=== PATIENT | female | born 1995 | race Caucasian/White ===

== ENCOUNTER 2016-06-18 22:52 | Observation (INO) ==
[2016-06-18 23:31] VITALS: BP 125/75
--- NOTE | 2016-06-19 07:19 | Discharge Summary ---
Date of Encounter: 06/19/16 Time of Encounter: 07:17 - Discharge Diagnosis (1) 39 weeks gestation of Priority: Primary Status: Acute Comments: admit for observation for labor evaluation (2) NST (non-stress test) reactive Priority: Secondary Status: Acute Comments: reactive NST 135 bpm moderate variability - Discharge Medications Home Medications: Formula Tablet 1 tab PO DAILY 06/19/16 [History] Allergies/Adverse Reactions: Allergies No Known Allergies Allergy (Verified 06/19/16 01:53) Date of admission: 06/18/16 22:52 Discharging clinician: Candy Israel Anticipated date of discharge: 06/19/16 - Patient Status Disposition: Home, Self-Care Condition: Good Functional capacity at discharge: independent ambulation - Discharge Instructions Additional Instructions: LABOR AND DELIVERY DISCHARGE INSTRUCTIONS Signs and Symptoms to be Reported to your Doctor Immediately: * Sudden gush, continuous or intermittent lead of fluid from vagina (note the time of gush and color of fluid) * Onset of bright red vaginal bleeding with or without pain (if you had a vaginal exam during this visit you may notice some dark red spotting. This is normal.) * Contractions that are 5 minutes apart (from the beginning of one contraction to the beginning of the next) and last 45-60 seonds; contractions that you can no longer walk, talk or laugh through. * A change in the baby's activity. This could be an increase or decrease in activity. * Severe headache which does not go away with tylenol. * Sudden swelling in the face, hands, arms and/or legs. * Upper abdominal pain - sometimes associated with heartburn or nausea and is not relieved by Maalox, Mylanta or Tums. * Kick Counts __ One hour after a meal, lay down on one side in a quiet place. Count the number of time the baby moves during an hour. If less than 6 movements, notify your physician Diet: *Force fluids, 8 to 10 tall glasses of fluid per day - may include popsicles and jello *Limit caffeine - this includes chocolate, coffee, tea, any soft drink containing such as all sanjana, Albert Yellow and Mountain Dew - Diet and Activity Activity: increase activity as tolerated Diet: regular diet Hospital Course [facility]ER Time Attestation: Total time spent providing and/or coordinating discharge services: Exam - Constitutional Vitals: Temp Pulse Resp BP 98.8 F 94 16 125/75 06/18/16 23:20 06/18/16 23:20 06/18/16 23:20 06/18/16 23:20 - Other Additional findings: Patient was assessed by RN. FHT 135 bpm moderate variability +15x15 accels no decels noted. irregular contractions. Cat. 1 tracing. RNST - VTE Reasons for not Prescribing Prophylaxis: Treatment not Indicated - Low risk for VTE
== END 2016-06-19 02:01 | disposition home or self-care (01) ==
LOC: 1NENULAB
PROVIDERS: ADMIT Obstetrics & Gynecology; ATTEND Obstetrics & Gynecology

== ENCOUNTER 2016-06-24 15:04 | Inpatient (IN) ==
[2016-06-24] MEDS ORDERED: Famotidine 20 MG/2 ML VIAL IVP PRN (15:08)
[2016-06-24] MEDS ORDERED: Ondansetron 4 MG/2 ML VIAL IVP PRN (15:08)
[2016-06-24] MEDS ORDERED: Naloxone 0.4 MG/ML INJ IVP PRN (15:08)
[2016-06-24] MEDS ORDERED: miSOPROStol 100 MCG TABLET PO STA (15:10)
[2016-06-24 15:49] LABS: Basophils % 0.3 %; Eosinophils # 0.1 K/mcL (0.0-0.6); Eosinophils % 0.7 %; Hematocrit 34.7 % (35.3-44.9); Hemoglobin 11.5 g/dL (11.5-15.4); Immature Granulocytes % 1.3 % (0-4); Immature Platelets 9.9 % (1.1-6.1); Lymphocytes % 15.2 %; Mean Corpuscular HGB Conc 33.1 g/dL (31.6-35.5); Mean Corpuscular Hemoglobin 29.3 pg (28.0-33.3); Mean Corpuscular Volume 88.3 fL (83.0-100.0); Mean Platelet Volume 11.6 fL (9.4-12.4); Monocytes # 1.1 K/mcL (0.0-1.3); Monocytes % 8.2 %; Neutrophils # 9.7 K/mcL (1.6-8.9); Platelet Count 237 K/mcL (140-400); Red Blood Count 3.93 M/mcL (3.82-4.97); Red Cell Distribution Width 15.5 % (11.5-14.5); Segmented Neutrophils % 74.3 %
--- NOTE | 2016-06-24 16:25 | OB/GYN History & Physical ---
Date of Encounter: 06/24/16 Time of Encounter: 16:20 Assessment and Plan (1) 40 weeks gestation of Current visit: Yes Status: Acute admit for IOL (2) Oligohydramnios in matthew in third trimester Current visit: Yes Status: Acute admit for IOL History of Present Illness Chief complaint: Oligohydramnios HPI: Ms. Wallace is a 21 year old female at 40w0d presents to labor and delivery for IOL for Oligohydramnios with a deceleration in heart rate during ultrasound. Patient had an LAURA of 4.7. Prolonged decel noted when patient was placed on the monitor in labor and delivery. Patient reports +FM denies contractions, LOF or VB. Blood type: O+, Rubella: nonimmune, Hep B: Nonreactive, GBS: Negative. Will admit for IOL. Past Med Surg Social Fam HX - Past Medical History Source: patient Medical history: no medical history Psychiatric history: no psych history - Past Surgical History Surgical History: no surgical history - Social History Smoking Status: Never smoker Smokeless Tobacco Status: No Alcohol use: none Current living situation: Home - Independent Activity Level: Independent ambulation Recent Out of Country Travel Within the Last 8 Weeks: No Exposure or Possible Exposure to Illness During Travel: No - Family History Mother Living Status: Still Living Hx Family Cardiac Disorders: No Hx Family Respiratory Disorders: No Hx Family Cancer: No Hx Family GI Disorders: No Hx Family Genitourinary Disorders: No Hx Family Endocrine Disorder: No Hx Family Musculoskeletal Disorders: No Hx Family Neuromuscular Disorders: No Hx Family Neurologic Disorders: No Hx Family HEENT Disorders: No Hx Family Autoimmune Disorders: No Hx Family Reproductive Disorders: No Hx Family Psychosocial Disorders: No Hx Family Medical Disorders: No Obstetrical History - Pregnancies : 1 Para: 0 Term: 0 : 0 Ab's: 0 Livin Medications and Allergies Formula Tablet 1 tab PO DAILY 06/19/16 [History] Allergies No Known Allergies Allergy (Verified 06/19/16 01:53) Review of System OB - Constitutional Constitutional ROS IM: no fever(s), no headache(s) - Cardiovascular Cardiovascular: no dyspnea, no palpitations, no syncope - Respiratory Respiratory: no dyspnea - Gastrointestinal Gastrointestinal: no abdominal pain, no constipation, no diarrhea, no heartburn , no nausea, no vomiting - Genitourinary Genitourinary: no abnormal vaginal bleeding, no dysuria, no urinary frequency, no urinary incontinence, no vaginal discharge, no vaginal odor Exam - Vital Signs Vital signs: Initial Vital Signs Temp Pulse Resp BP Pulse Ox 98.0 F 94 14 120/79 99 06/24/16 15:39 06/24/16 15:39 06/24/16 15:39 06/24/16 15:39 06/24/16 15:39 - Constitutional Constitutional: well developed, well nourished, no acute distress, average body habitus - HEENT HEENT: Normocephaly, Mucus Membranes Moist - Neck Neck exam: full ROM, supple - Lungs Respiratory exam: CTAB - Cardiovascular Cardiovascular exam: RRR, +S1, +S2 - Breasts Breast: bilateral: normal - Abdomen Abdomen: Present: bowel sounds normal, gravid, non tender - Extremities Extremities exam: full ROM, normal capillary refill, normal inspection Deep Tendon Reflex Grade: 2+ Normal - Cervix Dilation: 1 Effacement: 50 Station: -2 - Uterus Uterus exam: Present: normal size, normal contour - Anus/Rectum Anus/Rectum: Present: normal perianal skin (FHR 135 bpm moderate variability + 15x15 accels no decels noted at this time. No contractions noted. Tran catheter placed for IOL with 30cc sterile water in tran balloon.) Results Result Diagrams: 06/24/16 15:36 Abnormal lab results WBC 13.1 K/mcL (4.3-11.1) H 06/24/16 15:36 Hct 34.7 % (35.3-44.9) L 06/24/16 15:36 RDW 15.5 % (11.5-14.5) H 06/24/16 15:36 Neutrophils # 9.7 K/mcL (1.6-8.9) H 06/24/16 15:36 Immature Plt Fraction 9.9 % (1.1-6.1) H 06/24/16 15:36 All other labs normal. - VTE Reasons for not Prescribing Prophylaxis: Treatment not Indicated - Low risk for VTE
[2016-06-24] MEDS ORDERED: Oxytocin 20 units/ LR 1000 mL 20 UNIT/1,000 ML BAG IVC SCH (17:15)
--- NOTE | 2016-06-24 17:29 | Anesthesia Evaluation PreOp ---
Date of Encounter: 06/24/16 Time of Encounter: 17:26 - Past History Planned Operation: zee/sab Cardiac History: Denies any Significant Hx Pulmonary History: Asthma (childhood) REEL SLITTER History: Denies Any Significant HX Other Medical History: GERD Anesthesia History: No Prior Anesthetic Complications, Past Anesthesia (egd), Problems (no complications) : Yes Test: Positive Alcohol Use: none Drug use: none Medications and Allergies Formula Tablet 1 tab PO DAILY 06/19/16 [History] Allergies No Known Allergies Allergy (Verified 06/19/16 01:53) - Meds/Allergy Pre-op Review Medications Reviewed: Yes Allergies Reviewed: Yes Beta Blockers on Current Med List: No Anesthesia Results - Labs 06/24/16 15:36 Anesthesia Exam Vital Signs/O2 Sat, Most Current Temp Pulse Resp BP Pulse Ox 98.0 F 94 14 120/79 99 06/24/16 15:39 06/24/16 15:39 06/24/16 15:39 06/24/16 15:39 06/24/16 15:39 Height: 5'2" Weight: 174 NPO (# of Hours): 2 Pain Scale: 1 Pain Scale Used: Numeric (1 - 10) - HEENT Pupil (Motor): Pupils equal Teeth: Normal Oral Opening: Greater than 3 - REEL SLITTER LOC: Oriented REEL SLITTER Motor: Normal RUE, Normal LUE, Normal RLE, Normal LLE, Normal Face REEL SLITTER Sensory: Normal: RUE, LUE, RLE, LLE, Face - Cardiac Rhythm: Regular Murmur: None - Pulmonary Breath Sounds: bilateral Clear Respiratory Effort: Symmetrical Anesthesia Assess/Plan ASA Score: 2 Modified Esvin Scale for Level of Consciousness: Cooperative, oriented, and tranquil Anesthetic Plan: Regional Monitoring Plan: Standard Monitors (risks discussed, questions answered, consented for ZEE/SAB)
[2016-06-24] MEDS: Ringers Solution, Lactated 1,000 ML IVC SCH ×2 (17:31→23:26)
--- NOTE | 2016-06-24 19:47 | OB Labor Progress Note ---
Date of Encounter: 06/24/16 Time of Encounter: 19:45 Labor Progress Note - Subjective Subjective: Patient resting in bed. Patient denies any questions or concerns. - Cervix Cervix: 4/90/-2 - Heart Tones Heart Tones: 135 bpm moderate variability +15x15 accels no decels noted. CAt. 1 tracing - Laie Laie: 2-3 min apart - Interventions Interventions: SVE - Plan Plan: Continue labor management. Patient may have Nubain or epidural for pain if desires.
--- NOTE | 2016-06-24 21:35 | OB Labor Progress Note ---
Date of Encounter: 06/24/16 Time of Encounter: 21:33 Labor Progress Note - Subjective Subjective: Patient resting in bed. Patient reports contractions are starting to feel stronger. Discussed POC with patient. Patient denies any questions or concerns. - Cervix Cervix: 4/90/-1 - Heart Tones Heart Tones: 135 bpm moderate variability +15x15 accels variables noted. - Spring Green Spring Green: 2-3 min apart - Interventions Interventions: SVE, AROM small amount of clear fluid. Patient tolerated well. - Plan Plan: Continue labor management. Patient may have Nubain or epidural for pain if desires.
[2016-06-24] MEDS ORDERED: *HR* Nalbuphine 20 MG/ML AMPUL IVP PRN (23:06)
[2016-06-24] MEDS ORDERED: *HR* Ropivacaine/PF 0.2% 10 ML AMPUL EP ONE (23:36)
[2016-06-24] MEDS ORDERED: *HR* FentaNYL (PF) 100 MCG/2 ML VIAL EP ONE (23:36)
[2016-06-24] MEDS ORDERED: *HR* FentaNYL (PF) 100 MCG/2 ML VIAL ONE (23:41)
[2016-06-24] MEDS ORDERED: Epidural Premix (fent/bupiv) 110 ML EP ONE (23:41)
[2016-06-24] MEDS ORDERED: *HR* Ropivacaine/PF 0.2% 10 ML AMPUL ONE (23:41)
[2016-06-24] MEDS ORDERED: Epidural Premix (fent/bupiv) 110 ML EP SCH (23:45)
--- NOTE | 2016-06-25 00:14 | Anesthesia Procedures ---
Date of Encounter: 06/25/16 Time of Encounter: 00:12 Procedures: Anesthesia - Epidural/Spinal Patient examined: Yes OB Eval: Gestational age: 40 OB Eval: : 1 OB Eval: Hx Para: 0 OB Eval: Dilated at (cm): 4 OB Eval: Contractions: Non-stressed pattern Consent Obtained: Yes Supplemental Oxygen: None/Room Air Site Prep: Aseptic Technique, 0.5% Chlorhexidine/Alcohol Patient position: upright Local Anesthetic: Lidocaine 1% Amount of Local Anesthetic used: 3 Touhy Needle Gauge: 18 Touhy Needle Depth (cm): 6 Catheter Depth at Skin (cm): 15 Test Dose (1.5% Lido + Epi): Volume given (mls): 3 Test Dose Result: Negative Loading Dose: Fentanyl (mcg): 100 Loading Dose: Other: ropivicaine 0.2 10cc Infusion Med: 0.125% Bupivacaine w/ 2 mcg/ml Fentanyl Infusion Rate (mls/hr): 14 (pcea 5ccq30") Catheter Secured in Place: Tegaderm Interspace Used: L2-L3 Loss of Resistance (DENIZ): Yes Blood: No CSF: No Paresthesia: No Procedure: tolerated well, effective block, no complications Vitals + FHT's: 98/58 82 fht 118
[2016-06-25] MEDS: Ringers Solution, Lactated 1,000 ML IVC SCH ×3 (00:42→08:24)
--- NOTE | 2016-06-25 06:34 | OB Labor Progress Note ---
Date of Encounter: 06/25/16 Time of Encounter: 06:32 Labor Progress Note - Subjective Subjective: Patient resting comfortably in bed. Patient has epidural. Pitocin at 2 milliunits. - Cervix Cervix: 6/100/+1 - Heart Tones Heart Tones: 135 bpm moderate variability +15x15 accels jeovanny decels and variables noted. - Whiteside Whiteside: 2-8 Min apart - Interventions Interventions: SVE, IUPC placed without difficulty. - Plan Plan: Continue labor management if variables continue will start amnioinfusion
[2016-06-25] MEDS ORDERED: 0.9 % Sodium Chloride 1,000 ML ONE (06:48)
[2016-06-25] MEDS ORDERED: Epidural Premix (fent/bupiv) 110 ML EP ONE (07:22)
--- NOTE | 2016-06-25 09:37 | OB Labor Progress Note ---
Date of Encounter: 06/25/16 Time of Encounter: 09:35 Labor Progress Note - Subjective Subjective: Patient comfortable in bed with epidural in place. - Cervix Cervix: 8/100/+1 - Heart Tones Heart Tones: 150 bpm moderate variability +15x15 accels variables noted. - [place] Min[place]: 2.5-3 min apart - Interventions Interventions: SVE, Patient repositioned. Amnioinfusion irrigating at 80cc per hour per dial-a- flow. - Plan Plan: Continue labor management
[2016-06-25] MEDS ORDERED: Lidocaine 1% 20 ML MDV ONE (11:47)
--- NOTE | 2016-06-25 12:46 | OB/GYN Procedure Note ---
Delivery - Delivery Date: 06/25/16 Provider: Emilie Tafoya ([facility]) Intrapartum events: none Delivery induction: oxytocin, tran Delivery augmentation: rupture of membranes Delivery monitor: external FHT, external uterine, internal uterine Anesthesia: epidural Estimated Blood Loss: 300 - (s) Infant A Infant Delivery Date: 06/25/16 Infant Delivery Time: 12:21 Presentation: vertex Position: OA Route of delivery: Gender: Male Viability: Viable Weight Gram: 3.05 kg at 1 minute: 8 at 5 mins: 9 Shoulder Dystocia: not encountered Specimens collected: cord blood Placenta: spontaneous - Repair Episiotomy: none Laceration Description: None - Complications Delivery complications: none - Disposition Mom disposition: stable in LDR Metter disposition: stable in LDR - Comments Comments: Pt complete began directed pushing to of liveborn female. Vertex delivered OA and shoulders easily followed. placed on maternal abdomen stimulated to crying APGARS 8/9. Placenta delivered spontaneously (fabian) fundus firm with EBL of 300mls. Perineum with first degree laceration homeostatic and left unimpaired. Pitocin started per policy, Dr. Tafoya present for entire procedure.
[2016-06-25] MEDS ORDERED: Ibuprofen 600 MG TABLET PO PRN (14:42)
[2016-06-25] MEDS ORDERED: Oxytocin 20 units/ LR 1000 mL 20 UNIT/1,000 ML BAG IVC ONE (14:42)
[2016-06-25] MEDS ORDERED: Lanolin 7 G OINT...G. TP PRN (14:42)
[2016-06-25] MEDS ORDERED: Measles/Mumps/Rubella Vacc 0.5 ML VIAL SQ PRN (14:42)
[2016-06-25] MEDS ORDERED: Benzocaine/Menthol 56 GM AEROSOL SPRAY TP PRN (14:42)
[2016-06-25] MEDS ORDERED: Oxytocin 20 units/ LR 1000 mL 20 UNIT/1,000 ML BAG IV SCH (14:42)
[2016-06-25] MEDS ORDERED: Acetaminophen 325 MG TABLET PO PRN (14:42)
[2016-06-26 05:38] LABS: Basophils # 0.1 K/mcL (0.0-0.2); Basophils % 0.4 %; Eosinophils # 0.2 K/mcL (0.0-0.6); Hematocrit 28.2 % (35.3-44.9); Immature Granulocytes % 0.8 % (0-4); Lymphocytes # 2.4 K/mcL (0.6-4.6); Lymphocytes % 12.4 %; Mean Corpuscular HGB Conc 33.3 g/dL (31.6-35.5); Mean Corpuscular Hemoglobin 29.7 pg (28.0-33.3); Mean Platelet Volume 11.8 fL (9.4-12.4); Monocytes # 1.7 K/mcL (0.0-1.3); Monocytes % 8.5 %; Neutrophils # 15.1 K/mcL (1.6-8.9); Platelet Count 171 K/mcL (140-400); Red Blood Count 3.17 M/mcL (3.82-4.97); Red Cell Distribution Width 15.6 % (11.5-14.5); Segmented Neutrophils % 76.9 %
[2016-06-26 05:40] LABS: Hemoglobin 9.4 g/dL (11.5-15.4)
[2016-06-26 08:17] VITALS: BP 116/77
--- NOTE | 2016-06-26 08:30 | Discharge Summary ---
Date of Encounter: 06/26/16 Time of Encounter: 08:28 - Discharge Diagnosis (1) 40 weeks gestation of Priority: Secondary Status: Acute (2) Oligohydramnios in matthew in third trimester Priority: Secondary Status: Acute (3) Vaginal delivery Priority: Primary Status: Acute Comments: Continue routine care discharge home today follow up with LANIE Gupta in 4-6 weeks - Discharge Medications Prescriptions: Ibuprofen [Motrin] 600 mg PO Q6HR PRN #60 tablet PRN Reason: Cramping Home Medications: Formula Tablet 1 tab PO DAILY 06/19/16 [History] Ibuprofen [Motrin] 600 mg PO Q6HR PRN #60 tablet 06/26/16 [Rx] Vit/FA 1 each PO DAILY tablet 06/26/16 [Rx] Allergies/Adverse Reactions: Allergies No Known Allergies Allergy (Verified 06/19/16 01:53) Data Procedures and tests throughout hospitalization: Laboratory Tests 06/24/16 06/26/16 15:36 04:44 WBC 13.1 H 19.6 H RBC 3.93 3.17 L Hgb 11.5 9.4 L D Hct 34.7 L 28.2 L MCV 88.3 89.0 MCH 29.3 29.7 MCHC 33.1 33.3 RDW 15.5 H 15.6 H Plt Count 237 171 MPV 11.6 11.8 Immature Gran % 1.3 0.8 Seg Neutrophils % 74.3 76.9 Lymphocytes % 15.2 12.4 Monocytes % 8.2 8.5 Eosinophils % 0.7 1.0 Basophils % 0.3 0.4 Neutrophils # 9.7 H 15.1 H Lymphocytes # 2.0 2.4 Monocytes # 1.1 1.7 H Eosinophils # 0.1 0.2 Basophils # 0.0 0.1 Immature Plt Fraction 9.9 H Labs on day of discharge: Labs from last 24 hours 06/26/16 04:44 WBC 19.6 H RBC 3.17 L Hgb 9.4 L D Hct 28.2 L MCV 89.0 MCH 29.7 MCHC 33.3 RDW 15.6 H Plt Count 171 MPV 11.8 Immature Gran % 0.8 Seg Neutrophils % 76.9 Lymphocytes % 12.4 Monocytes % 8.5 Eosinophils % 1.0 Basophils % 0.4 Neutrophils # 15.1 H Lymphocytes # 2.4 Monocytes # 1.7 H Eosinophils # 0.2 Basophils # 0.1 Date of admission: 06/24/16 15:04 Primary care physician: PCP MARY JO Consults: 06/25/16 14:42 Consult to Vending Route Driver [CONS] Routine Comment: Vaginal delivery, consult needed Discharging clinician: Candy Israel Anticipated date of discharge: 06/26/16 - Patient Status Disposition: Home, Self-Care Condition: Good Functional capacity at discharge: independent ambulation - Discharge Instructions Follow Up With: MARY JO,PCP [Primary Care Provider] - Candy Israel CNM [Non-Partnered Physician] - - Diet and Activity Activity: increase activity as tolerated Diet: regular diet Hospital Course Reason for admission: induction of labor (for Oligohydramnios) Delivery: Episiotomy: none Laceration: none Other procedures: none complications: none Discharge diagnosis: IUP at term delivered [place] baby: male (bottle feeding) Time Attestation: Total time spent providing and/or coordinating discharge services: Time Spent: Less than 30 minutes Exam - Constitutional Vitals: Temp Pulse Resp BP Pulse Ox 97.8 F 78 16 116/77 98 06/26/16 08:16 06/26/16 08:16 06/26/16 08:16 06/26/16 08:16 06/26/16 08:16 General appearance IM: A&O X 3, pleasant, answers questions appropriately - Respiratory Respiratory exam: Present: CTAB - Cardiovascular Cardiovascular exam IM: Present: RRR, +S1, +S2 - GI/Abdominal GI/Abdominal exam IM: normal bowel sounds - Uterine Tone: Firm Uterus Position: 1 Finger Below Umbilicus, Midline - Extremities Exam Extremities exam IM: Present: full ROM, normal capillary refill, normal inspection - Neurological Exam Neurological exam: alert, oriented X3, reflexes normal
[2016-06-26] MEDS ORDERED: Prenatal Vit/FA 1 EACH TABLET PO SCH (09:00)
== END 2016-06-26 13:30 | disposition home or self-care (01) | DRG 560 ==
LOC: 1NENULAB 15:04 → 1NENUOBS 06-25 14:27
PROVIDERS: ADMIT Advanced Practice Midwife; ATTEND Advanced Practice Midwife

== ENCOUNTER 2019-08-07 07:45 | Inpatient (IN) ==
[2019-08-07] MEDS ORDERED: *HR* FentaNYL (PF) 100 MCG/2 ML VIAL IVP PRN (08:00)
[2019-08-07] MEDS ORDERED: Naloxone 0.4 MG/ML INJ IVP PRN (08:00)
[2019-08-07] MEDS ORDERED: Metoclopramide 10 MG/2 ML VIAL IVP PRN (08:00)
[2019-08-07] MEDS ORDERED: Famotidine 20 MG/2 ML VIAL IVP PRN (08:00)
[2019-08-07] MEDS ORDERED: Ringers Solution, Lactated 1,000 ML IVC SCH (08:00)
[2019-08-07] MEDS ORDERED: miSOPROStoL 25 MCG TABLET PO ONE (08:09)
[2019-08-07 09:46] LABS: Basophils % 0.3 %; Eosinophils # 0.1 K/mcL (0.0-0.6); Eosinophils % 0.8 %; Hematocrit 34.1 % (35.3-44.9); Hemoglobin 11.1 g/dL (11.5-15.4); Lymphocytes # 2.1 K/mcL (0.6-4.6); Lymphocytes % 18.4 %; Mean Corpuscular HGB Conc 32.6 g/dL (31.6-35.5); Mean Corpuscular Hemoglobin 30.6 pg (28.0-33.3); Mean Corpuscular Volume 93.9 fL (83.0-100.0); Mean Platelet Volume 12.4 fL (9.4-12.4); Monocytes % 9.3 %; Neutrophils # 7.9 K/mcL (1.6-8.9); Platelet Count 184 K/mcL (140-400); Red Blood Count 3.63 M/mcL (3.82-4.97); Red Cell Distribution Width 15.1 % (11.5-14.5); Segmented Neutrophils % 70.2 %; White Blood Count 11.2 K/mcL (4.3-11.1)
[2019-08-07 09:59] LABS: Amphetamine Screen,Urine Negative ng/mL (Cutoff=1000); Barbiturate Screen,Urine Negative ng/mL (Cutoff=200); Benzodiazepines Screen,Urine Negative ng/mL (Cutoff=200); Cannabinoid Screen,Urine Negative ng/mL (Cutoff = 50); Cocaine Screen,Urine Negative ng/mL (Cutoff= 300); Opiate Screen,Urine Negative ng/mL (Cutoff=300); Phencyclidine Screen,Urine Negative ng/mL (Cutoff=25)
[2019-08-07] MEDS ORDERED: EPHEDrine 50 MG/ML VIAL IVP PRN (13:44)
[2019-08-07] MEDS ORDERED: Epidural Premix (fent/bupiv) 110 ML EP SCH (13:45)
[2019-08-07] MEDS ORDERED: Oxytocin 20 units/ LR 1000 mL 20 UNIT/1,000 ML BAG IVC SCH ×2 (16:00→20:45)
[2019-08-07] MEDS ORDERED: Acetaminophen 325 MG TABLET PO ONE (18:09)
[2019-08-07] MEDS ORDERED: Acetaminophen 325 MG TABLET PO PRN (20:45)
[2019-08-07] MEDS ORDERED: Lanolin 7 G OINT...G. TP PRN (20:45)
[2019-08-07] MEDS ORDERED: Ibuprofen 600 MG TABLET PO PRN (20:45)
[2019-08-07] MEDS ORDERED: Benzocaine/Menthol 56 GM AEROSOL SPRAY TP PRN (20:45)
[2019-08-07] MEDS ORDERED: Measles/Mumps/Rubella Vacc 0.5 ML VIAL SQ PRN (20:45)
[2019-08-08] MEDS ORDERED: Prenatal Vit/FA 1 EACH TABLET PO SCH (09:00)
[2019-08-08] MEDS: Famotidine 20 MG TABLET PO SCH ×2 (09:05→09:07)
[2019-08-08 16:09] VITALS: BP 105/64
== END 2019-08-08 20:04 | disposition home or self-care (01) | DRG 807 ==
LOC: 1NENULAB 07:45 → 1NENUOBS 08-08 00:04
PROVIDERS: ADMIT Registered Nurse; ATTEND Registered Nurse